=== PATIENT | female | born 1965 | race Caucasian/White ===

== ENCOUNTER 2019-01-30 14:20 | Emergency (ER) | payer OTHER ==
[~2019-01-30] VITALS: Ht 170.2 cm; Wt 93.0 kg
[2019-01-30] MEDS ORDERED: KETO10TA2 PO (18:22)
[2019-01-30] MEDS ORDERED: NORFLEX100MG PO (18:22)
== END 2019-01-30 18:19 | disposition home or self-care (01) ==
LOC: ER 14:20
DX: M25.511 Pain in right shoulder (principal)